=== PATIENT | female | born 1965 | race Caucasian/White ===

== ENCOUNTER → 2019-10-21 16:56 | Outpatient (BNVA) | payer OTHER, SELFPAY | PROVIDERS: Family Provider Nurse Practitioner; PCP Nurse Practitioner; Visit Provider Nurse Practitioner | DX: E03.8 Other specified hypothyroidism (principal) | CPT/HCPCS: 80053; 80061; 83001; 84443 ==

== ENCOUNTER 2019-11-28 15:39 | Outpatient (CLI) | payer OTHER, SELFPAY ==
--- NOTE | 2019-11-28 15:30 | MM_ITS ---
WS: [id number] BILATERAL DIGITAL SCREENING MAMMOGRAPHY WITH CAD CLINICAL INFORMATION: screen HISTORY: Screening mammogram. No current complaints. COMPARISON: TECHNIQUE: Bilateral CC and MLO views. FINDINGS: The breasts are composed of heterogeneous fibroglandular density tissue, which can limit the detectio n of small underlying mass lesions. No suspicious mass, asymmetry, calcifications, or architectural d istortion. No evidence of malignancy. Vascular calcifications. A few punctate calcifications. MM/[id number] IMPRESSION: BI-RADS: 2-Benign FOLLOW UP: 1 Year Follow-up Recommend return to annual screening mammography.
== END 2019-11-28 15:40 | disposition home or self-care (01) ==
LOC: RADSHAW 15:43
PROVIDERS: PCP Nurse Practitioner; Visit Provider Nurse Practitioner
DX: Z12.31 Encounter for screening mammogram for malignant neoplasm of breast (principal)
CPT/HCPCS: 77067

== ENCOUNTER → 2020-03-17 15:48 | Outpatient (BNVA) | payer OTHER, SELFPAY | PROVIDERS: PCP Nurse Practitioner; Visit Provider Nurse Practitioner | DX: Z20.828 Contact with and (suspected) exposure to other viral communicable diseases (principal); Z11.59 Encounter for screening for other viral diseases | CPT/HCPCS: 84443 ==

== ENCOUNTER → 2020-12-09 16:05 | Outpatient (BNVA) | payer OTHER, SELFPAY | PROVIDERS: PCP Nurse Practitioner; Visit Provider Nurse Practitioner | DX: E03.8 Other specified hypothyroidism (principal); Z13.6 Encounter for screening for cardiovascular disorders | CPT/HCPCS: 80053; 80061; 84439; 84443; 84481 ==

== ENCOUNTER 2021-01-26 15:13 | Outpatient (CLI) | payer OTHER, SELFPAY ==
--- NOTE | 2021-01-26 15:30 | MM_ITS ---
WS: [id number] BILATERAL SCREENING DIGITAL MAMMOGRAM WITH CAD HISTORY: Z12.39 - Encounter for other screening for malignant neoplasm... COMPARISON: 10/17/2018, 11/28/2019 and 06/08/2016 Bilateral CC and MLO views submitted. Computer aided detection analyzed. Breast composition: There are scattered areas of fibroglandular density. No suspicious masses, microc alcifications or architectural distortion. Stable mass measuring 7 mm with calcifications in the infe rior medial RIGHT breast. No new mass. MM/[id number] IMPRESSION: BI-RADS: 2-Benign FOLLOW UP: 1 Year Follow-up
== END 2021-01-26 15:14 | disposition home or self-care (01) ==
LOC: RADSHAW 15:18
PROVIDERS: PCP Nurse Practitioner; Visit Provider Nurse Practitioner
DX: Z12.31 Encounter for screening mammogram for malignant neoplasm of breast (principal)
CPT/HCPCS: 77067

== ENCOUNTER 2021-01-31 15:40 | Emergency (ER) | payer OTHER, SELFPAY ==
[2021-01-31 16:00] VITALS: BP 125/81; PULSE 89; RESP 22; TEMP 37.3; O2SAT 98; BMI 27.1
--- NOTE | 2021-01-31 17:08 | XRR_ITS ---
PROCEDURE INFORMATION: Exam: XR Chest Exam date and time: 01/31/2021 5:08 PM Age: 55 years old Clinical indication: Cough with hemorrhage; Additional info: Cough, blood in sputum TECHNIQUE: Imaging protocol: XR of the chest. Views: 2 views. COMPARISON: No relevant prior studies available. FINDINGS: Lungs: Unremarkable. No consolidation. Pleural spaces: Unremarkable. No pleural effusion. No pneumothorax. Heart/Mediastinum: Unremarkable. No cardiomegaly. Diaphragm: Mild elevation of the left hemidiaphragm. Bones/joints: Unremarkable. XR/XR chest 2V* [id number] IMPRESSION: No evidence for acute cardiopulmonary disease. Radiation Dose CTDIVOL = (mGy): DLP = (mGy-cm)
--- NOTE | 2021-01-31 17:47 | PC.NURSE ---
no call for rooming
--- NOTE | 2021-01-31 17:54 | ED_ITS ---
HPI - General Adult General: Chief complaint: General Medical Stated complaint: COUGHING UP BLOOD/HEADACHE Time Seen by Provider: 01/31/21 17:54 History of Present Illness: HPI narrative: 55-year-old female comes in today with some coughing up or emesis with blood in it. Patient states that she gets nauseous and has episodes of coughing and vomiting. Patient recently has had her vaccines for the flu and for COVID-19. Patient appears well. Patient denies any significant illness. Patient is a smoker had stopped for 2 months but has recently restarted. Patient is alert oriented. Patient denies any chest discomfort. Patient does report some left upper quadrant abdominal discomfort. Patient has a history of hypothyroidism. Onset (ago): day(s) Associated symptoms: Reports nausea; Deny dyspnea or malaise Review of Systems General: Reports: 10 or more systems reviewed and unremarkable except in HPI and below Const: Denies: fever(s), fatigue or malaise ENMT: Denies: throat pain Resp: Denies: dyspnea, pain on inspiration or change in phlegm color GI: Reports: abdominal pain (Epigastric) and nausea PFSH ED PFSH: Medical History Adult onset hypothyroidism Uses Depo-Provera as primary control method Surgical History No history of previous surgery Family History Other Cancer Denies family history of Bleeding disorder Social History Smoking and tobacco status: current every day smoker Second hand smoke exposure: Yes Smoking risk assessment/counseling performed?: Yes Alcohol intake: current Desire information about alcohol rehabilitation?: No Counseling given: No Desire information about substance/drug rehabilitation?: No Counseling given: No Adopted: No Caregiver/support person: No Lives independently: Yes Household members: spouse Housing: House Marital status: service: No Current occupational status: employed Pets and animals: Yes History of recent travel: No Current gender identity: Female Physical Exam Const: COMMON NORMALS: no acute distress and patient oriented x3 GENERAL APPEARANCE: cooperative HENMT: COMMON NORMALS: normocephalic, TM's normal bilaterally and Normal ex ternal nose present HEAD & SCALP: normal to inspection and normocephalic NOSE: Normal external nose present TYMPANIC MEMBRANE: TM's normal bilaterally MOUTH: Normal oral and palatal mucosa present THROAT: posterior oropharynx normal Eye: GENERAL EYE: appearance normal, both eyes and all related structures Neck/C-Spine: COMMON NORMALS: full ROM Lymph: LYMPHATIC: no lymphadenopathy noted Chest: COMMONS NORMALS: normal inspection of the chest Resp: COMMON NORMALS: normal respiratory effort and clear to auscultation bilaterally EFFORT & INSPECTION: Yes able to speak in complete sentences AUSCULTATION: clear to auscultation bilaterally Cardio: COMMON NORMALS: regular rate and regular rhythm RATE: regular rate RHYTHM: regular rhythm GI: COMMON NORMALS: Soft to palpation and non-tender AUSCULTATION: Yes normoactive bowel sounds PALPATION: Yes Soft to palpation : COMMON NORMALS: Yes no CVA tenderness BLADDER/KIDNEY EXAM: Yes no CVA tenderness Back/Pelvis: COMMON NORMALS: no CVA tenderness and thoracic and lumbar spine normal to inspection Extremity: COMMON NORMALS: normal to inspection Neuro: COMMON NORMALS: patient oriented x3 and moves all extremities Psych: COMMON NORMALS: mental status grossly normal and cooperative Skin: COMMON NORMALS: no rashes or lesions noted GENERAL SKIN EXAM: no rashes or lesions noted Course Vital Signs: Vital signs: Vital Signs Temperature 97.9 F 01/31/21 18:10 Pulse Rate 76 01/31/21 18:33 Respiratory Rate 18 01/31/21 18:33 Blood Pressure 124/83 01/31/21 18:33 Pulse Oximetry 98 01/31/21 18:33 MDM - General Adult MDM Narrative: Medical decision making narrative: 55-year-old female comes in today with complaints of some nausea, occasional cough, and emesis with blood. Patient also reports some increase in heartburn over the last couple of weeks. Exam is unremarkable, vital signs are normal. Respirations are even lungs are clear to auscultation. Abdomen is soft with some mild epigastric tenderness. Differential diagnosis includes but not limited to pneumonia, PE, esophageal varices, gastritis. Laboratory values were unremarkable. Liver enzymes were normal. PT PTT was normal. D-dimer was negative. With patient's complaints of symptoms of believe that she probably has gastritis. Will start on some pantoprazole and recommend recheck with primary care and further evaluation with upper endoscopy. Patient reported understanding and agreed to plan. Lab Data: Labs: Lab Results 01/31/21 01/31/21 01/31/21 18:30 18:30 18:30 WBC 7.0 10^3/uL 10^3/ uL (4.0-10.0) RBC 4.44 10^6/uL 10^6 /uL (4.1-5.3) Hgb 14.9 g/dL g/dL (11.5-15.3) Hct 45.1 % % (37.0-47.0) MCV 101.6 fl H fl (81-99) MCH 33.6 pg pg (28.0-34.0) MCHC 33.0 g/dL g/dL (30.0-36.0) RDW 13.1 % % (12.1-15.1) Plt Count 344 10^3/cmm 10^3 /cmm (130-400) MPV 9.7 fL fL (7.4-10.4) Neut % (Auto) 64.9 % % Lymph % (Auto) 23.3 % % [place] % (Auto) 9.6 % % Eos % (Auto) 1.0 % % Baso % (Auto) 0.9 % % Neut # (Auto) 4.56 10^3/uL 10^3 /uL (1.8-7.7) Lymph # (Auto) 1.6 10^3/uL 10^3/ uL (0.8-4.8) [place] # (Auto) 0.7 10^3/uL 10^3/ uL (0.2-0.9) Eos # (Auto) 0.1 10^3/uL 10^3/ uL (0.0-0.8) Baso # (Auto) 0.1 10^3/uL 10^3/ uL (0.0-0.1) Nucleated RBC % (a uto) 0 % % Nucleated RBCs # 0.0 /100WBC /100W BC PT 12.60 SECONDS SEC ONDS (12.1-14.9) INR 0.91 (0.8-1.2) APTT 27.8 SECONDS SECO NDS (23.9-36.7) D-Dimer 0.51 ug/mIFEU ug/ mIFEU (0-0.59) Sodium 141 mmol/L mmol/L (136-145) Potassium 3.8 mmol/L mmol/L (3.5-5.1) Chloride 107 mmol/L mmol/L (98-107) Carbon Dioxide 21 mmol/L L mmol/ L (22-29) Anion Gap 16.8 (5-19) BUN 6 mg/dL mg/dL (6-20) Creatinine 0.5 mg/dL mg/dL (0.5-0.9) GFR Calculation 129.1 mL/min mL/m in (90-130) Glucose 87 mg/dL mg/dL (65-115) Calculated Osmolal ity 289 mOsm/kg mOsm/ kg (285-295) Calcium 9.7 mg/dL mg/dL (8.5-10.5) Total Bilirubin 0.3 mg/dL mg/dL (0.15-1.2) AST 14 U/L U/L (0-32) ALT 16 U/L U/L (0-33) Alkaline Phosphata se 102 IU/L IU/L (35-105) Total Protein 7.4 g/dL g/dL (6.6-8.7) Albumin 4.5 g/dL g/dL (3.5-5.2) Globulin 2.9 g/dL g/dL (1.3-4.6) Discharge Plan Discharge Patient Disposition: Home Clinical Impression: Gastritis Qualifiers: Gastritis type: unspecified gastritis Chronicity: acute Gastritis bleeding: with bleeding Qualified Code(s): K29.01 - Acute gastritis with bleeding Condition: Stable Prescriptions: New pantoprazole 40 mg tablet,delayed release (DR/EC) 40 mg PO DAILY Qty: 30 RF: 0 No Action levothyroxine 75 mcg tablet 75 mcg PO DAILY Qty: 30 RF: 1 medroxyprogesterone 150 mg/mL syringe 150 mg IM .Every 12 weeks Qty: 1 RF: 3 Discharge Orders: Discharge ED (Routine); Ordered 01/31/21 Ordered By: Marco Schmid Referrals: Tye Chatterjee, [facility] [Primary Care Provider] - Discharge Diet: As Directed Discharge Activity: Increase activity as tolerated Patient Instructions: Gastritis (ED), Diet for Stomach Ulcers and Gastritis (ED), Opioid Safety Activity Restrictions/Additional Instructions: Home and rest. Take medication as directed. You will take pantoprazole 40 mg daily 30 minutes prior to the first meal of the day. Monitor for worsening symptoms such as high fever, blood in vomit and stool, and worsening pain. Return to the emergency room for worsening symptoms or new concerns. Follow-up with primary care in 1 week for recheck. Coding Level of Care Code ED Construction Safety Consultant for Maribel Fwd Exam Comprehensive
[2021-01-31 18:10] VITALS: BP 124/84; PULSE 73; RESP 16; TEMP 36.6; O2SAT 99
[2021-01-31 18:33] VITALS: BP 124/83; PULSE 76; RESP 18; O2SAT 98
[2021-01-31 18:37] LABS: Basophils # 0.1 10^3/uL (0.0-0.1); Basophils % 0.9 %; Eosinophils # 0.1 10^3/uL (0.0-0.8); Hematocrit 45.1 % (37.0-47.0); Hemoglobin 14.9 g/dL (11.5-15.3); Lymphocytes # 1.6 10^3/uL (0.8-4.8); Lymphocytes % 23.3 %; Mean Corpuscular Hemoglobin 33.6 pg (28.0-34.0); Mean Corpuscular Volume 101.6 fl (81-99); Mean Platelet Volume 9.7 fL (7.4-10.4); Monocytes # 0.7 10^3/uL (0.2-0.9); Monocytes % 9.6 %; Neutrophils # 4.56 10^3/uL (1.8-7.7); Neutrophils % 64.9 %; Nucleated Red Blood Cells % 0 %; Platelet Count 344 10^3/cmm (130-400); Red Blood Count 4.44 10^6/uL (4.1-5.3); Red Cell Distribution Width 13.1 % (12.1-15.1)
[2021-01-31 18:52] LABS: Alanine Aminotransferase 16 U/L (0-33); Albumin Level 4.5 g/dL (3.5-5.2); Alkaline Phosphatase 102 IU/L (35-105); Anion Gap 16.8 (5-19); Aspartate Amino Transferase 14 U/L (0-32); Blood Urea Nitrogen 6 mg/dL (6-20); Calcium 9.7 mg/dL (8.5-10.5); Carbon Dioxide 21 mmol/L (22-29); Chloride 107 mmol/L (98-107); Globulin 2.9 g/dL (1.3-4.6); Glomerular Filtration Rate 129.1 mL/min (90-130); Glucose 87 mg/dL (65-115); Osmolality Calculated 289 mOsm/kg (285-295); Potassium 3.8 mmol/L (3.5-5.1); Sodium 141 mmol/L (136-145); Total Bilirubin 0.3 mg/dL (0.15-1.2); Total Protein 7.4 g/dL (6.6-8.7)
[2021-01-31 19:15] LABS: INR 0.91 (0.8-1.2); Partial Thromboplastin Time 27.8 SECONDS (23.9-36.7)
[2021-01-31 19:18] LABS: D Dimer 0.51 ug/mIFEU (0-0.59)
[2021-01-31 19:34] VITALS: RESP 16
[2021-01-31] MEDS: pantoprazole DR 40 mg Tablet PO (19:34)
--- NOTE | 2021-02-01 14:02 | DCPLANNER ---
clinical resource manager had message to schedule a follow up appointment for patient with [facility] General Surgery. clinical resource manager emailed patients information to Cathie Quinonez and Esmer at [facility] General Surgery / ENT clinic. Patients information will be printed and reviewed. Clinic will call patient with appointment information.
--- NOTE | 2021-02-04 15:34 | DCPLANNER ---
Patient has a follow up appointment scheduled for Monday, February 08, 2021 at 8:[address] Daugherty at [facility] General Surgery / ENT clinic. Clinic will call patient with appointment information.
--- NOTE | 2021-02-11 08:25 | DCPLANNER ---
Patient had a follow up appointment scheduled for 02.08.[address] Shah at general surgery - patient did attend appointment.
== END 2021-01-31 19:35 | disposition home or self-care (01) ==
PROVIDERS: Emergency Provider Nurse Practitioner Family; PCP Nurse Practitioner
DX: K29.01 Acute gastritis with bleeding (principal); F17.210 Nicotine dependence, cigarettes, uncomplicated
CPT/HCPCS: 71046; 80053; 85025; 85378; 85610; 85730; 99283

== ENCOUNTER → 2021-02-08 08:57 | Outpatient (BNVA) | payer OTHER, SELFPAY | PROVIDERS: PCP Nurse Practitioner; Visit Provider Surgery | DX: Z12.11 Encounter for screening for malignant neoplasm of colon (principal); K92.0 Hematemesis; Z20.822 Contact with and (suspected) exposure to COVID-19 | CPT/HCPCS: 87635 ==

== ENCOUNTER 2021-02-12 06:42 | Day surgery (SDC) | payer OTHER, SELFPAY ==
[2021-02-10 10:57] VITALS: BMI 27.1
--- NOTE | 2021-02-12 06:45 | W.PM.OPSUD ---
Surgery/Procedure H&P Update DATE OF PROCEDURE: February 12, 2021 DATE H&P PERFORMED: 02/08/21 H&P UPDATE INFORMATION: I have reviewed H&P completed within last 30 days, I have examined patient prior to procedure and No changes to prior documentation PREOP DIAGNOSIS: Hematemesis PRIMARY INDICATION FOR PROCEDURE: The same PLANNED PROCEDURE: Operation Date: 02/12/21 08:00 Proposed Procedures p EGD 26746 K92.0(Not Applicable) - Kyler Daugherty MD
--- NOTE | 2021-02-12 06:51 | ANES.PREANE2 ---
Pre-Anesthetic Assessment Pre-Anesthetic Assessment: Height/Weight: Height 1.8 m Weight 88.451 kg Preop Diagnosis: Hematemesis Proposed Procedure: Operation Date: 02/12/21 08:00 Proposed Procedures p EGD 32385 K92.0(Not Applicable) - Kyler Daugherty MD Familial anesthetic complications: No history of anesthesia- no family trouble Was Beta Jamaal taken within 24 hours: N/A Was Clonidine taken within 24 hours: N/A Last intake: > 8hrs Social: Social History: Alcohol and Tobacco Comment: beers 4 daily Exam: Pre-Anes Outpt Exam: alert, oriented x 3, clear to auscultation bilaterally and regular rate & rhythm Airway: MP: 2 Dentition: Other (1 missing) GI: GI: GERD Metabolic: Metabolic: Thyroid Anesthetic Plan: ASA status: 2 Anesthesia: MAC Risk of > 500 ml blood loss (7ml/kg in children): No PFSH Anesthesia PFSH: Medical History Adult onset hypothyroidism Alcohol dependence, daily use Uses Depo-Provera as primary control method Surgical History No history of previous surgery Family History Other Cancer Denies family history of Bleeding disorder Social History Smoking and tobacco status: current every day smoker Second hand smoke exposure: Yes Smoking risk assessment/counseling performed?: Yes Alcohol intake: current Desire information about alcohol rehabilitation?: No Counseling given: No Desire information about substance/drug rehabilitation?: No Counseling given: No Adopted: No Caregiver/support person: No Lives independently: Yes Household members: spouse Housing: House Marital status: service: No Current occupational status: employed Pets and animals: Yes History of recent travel: No Current gender identity: Female Data Anesthesia Cardiac Studies: No Data to Display
[2021-02-12 07:23] VITALS: BP 144/81; PULSE 78; RESP 18; TEMP 36.6; O2SAT 99
[2021-02-12] MEDS: sodium chloride 0.9% 1,000 ML 30 ML IV (07:31)
[2021-02-12 09:04] VITALS: BP 132/89; PULSE 80; RESP 18; TEMP 36.5; O2SAT 97
--- NOTE | 2021-02-12 09:06 | ANE.PACU2 ---
Inpatient post-anesthesia follow up: Airway intact: Yes Vital signs: Temperature 97.9 F Pulse Rate 78 Respiratory Rate 18 Blood Pressure 144/81 Pulse Oximetry 99 Oxygen Delivery Me thod Room Air Oxygen Flow Rate Fraction of Inspir ed Oxygen Hydration adequate: Yes Nausea and vomiting: No Pain level: 1 Mental status: Baseline
[2021-02-12 09:33] VITALS: BP 138/95; PULSE 74; RESP 16; O2SAT 98
[2021-02-15 15:11] LABS: H. Pylori / CLO Test Negative
== END 2021-02-12 09:35 | disposition home or self-care (01) ==
PROVIDERS: PCP Nurse Practitioner; Visit Provider Surgery
PROC: 0DJ08ZZ Inspection of Upper Intestinal Tract, Via Natural or Artificial Opening Endoscopic (ICD-10-PCS; CPT 43235; principal; 2021-02-12 08:00)
DX: K92.0 Hematemesis (principal); K21.00 Gastro-esophageal reflux disease with esophagitis, without bleeding; K29.70 Gastritis, unspecified, without bleeding; E03.8 Other specified hypothyroidism; Z77.22 Contact with and (suspected) exposure to environmental tobacco smoke (acute) (chronic)
CPT/HCPCS: 43239; 87077; 96361; 96374; J2704; J7030

== ENCOUNTER → 2021-06-11 10:14 | Outpatient (BNVA) | payer OTHER, SELFPAY | PROVIDERS: PCP Nurse Practitioner; Visit Provider Surgery | DX: Z20.822 Contact with and (suspected) exposure to COVID-19 (principal) | CPT/HCPCS: 87635 ==

== ENCOUNTER 2021-06-18 06:53 | Day surgery (SDC) | payer OTHER, SELFPAY ==
[2021-06-16 10:01] VITALS: BMI 26.4
--- NOTE | 2021-06-18 07:01 | ANES.PREANE2 ---
Pre-Anesthetic Assessment Height/Weight: Height 1.8 m Weight 86.183 kg Preop Diagnosis: Hematemesis Operation Date: 06/18/21 08:30 Proposed Procedures p [id number]/k20.90(Not Applicable) - Kyler Daugherty MD Familial anesthetic complications: None Was Beta Jamaal taken within 24 hours: N/A Was Clonidine taken within 24 hours: N/A Last intake: > 8 hrs Social Alcohol (3 beers nightly) and Tobacco Exam alert, oriented x 3, clear to auscultation bilaterally and regular rate & rhythm Airway Mallampati: Class II Dentition: other (1 missing) Pulmonary None reported CV/HEM None reported None reported Hepatic None reported GI Gastroesophageal Reflux Disease Metabolic Thyroid Disease [facility] [place] None reported Neuropsych None reported Anesthetic Plan ASA status: 2 Anesthesia: MAC Risk of > 500 ml blood loss (7ml/kg in children): No Medications/Allergies Home Medications Medication Instructions Recorded Confirmed Last Taken Type medroxyprogesterone 150 mg/mL 150 mg IM .Every 12 weeks #1 ml 12/08/20 06/16/21 Unknown Rx intramuscular syringe levothyroxine 75 mcg tablet 75 mcg PO DAILY #90 tab 02/07/21 06/16/21 02/12/21 Rx sucralfate 1 gram tablet (Carafate) 1 g PO TID 56 Days #168 tab 02/12/21 06/16/21 Unknown Rx pantoprazole 40 mg tablet,delayed 40 mg PO DAILY #90 tab 02/22/21 06/16/21 Unknown Rx release venlafaxine 75 mg capsule,extended 75 mg PO BEDTIME 06/16/21 06/16/21 Unknown History release 24 hr (Effexor XR) Allergies Allergy/AdvReac Type Severity Reaction Status Date / Time No Known Allergies Allergy Verified 06/16/21 10:02 [facility] Anesthesia Medical History Adult onset hypothyroidism Alcohol dependence, daily use Hematemesis Uses Depo-Provera as primary control method Surgical History No history of previous surgery Family History Other Cancer Denies family history of Bleeding disorder Social History Smoking and tobacco status: current every day smoker Second hand smoke exposure: Yes Smoking risk assessment/counseling performed?: Yes Alcohol intake: current Desire information about alcohol rehabilitation?: No Counseling given: No Desire information about substance/drug rehabilitation?: No Counseling given: No Adopted: No Caregiver/support person: No Lives independently: Yes Household members: spouse Housing: House Marital status: service: No Current occupational status: employed Pets and animals: Yes History of recent travel: No Current gender identity: Female Data Anesthesia Cardiac Studies: No Data to Display
[2021-06-18 07:19] VITALS: BP 131/93; PULSE 84; RESP 18; TEMP 36.1; O2SAT 96
[2021-06-18] MEDS: sodium chloride 0.9% 1,000 ML 30 ML IV (07:37)
--- NOTE | 2021-06-18 07:48 | W.PM.OPSFHP ---
Same Day Surgery H&P Indication for Procedure/HPI DATE OF PROCEDURE: June 18, 2021 CHIEF COMPLAINT/INDICATIONFOR SURGICAL PROCEDURE: History of esophagitis PREOP DIAGNOSIS: Distal esophagitis PLANNED PROCEDURE: Operation Date: 06/18/21 08:30 Proposed Procedures p [id number]/k20.90(Not Applicable) - Kyler Daugherty MD 02/22/2021 Patient comes today status post EGD and was found to have distal esophagitis, gastritis and otherwise normal findings.? Currently she is on PPI therapy and Carafate and overall she seems to be doing well and working on stopping smoking.? Patient overall will require a repeat EGD in 2 to 3-month due to the distal esophagitis as if it is not getting better biopsies will be obtained Interim history 04/28/2021 Ms. Zimmer comes today and overall feels well yet she continues to smoke and drink. Patient did have distal esophagitis and I am concerning about her pattern of lifestyle that she may have an underlying component of Suarez's esophagitis. Interim history 06/18/2021 Patient comes today for repeat diagnostic EGD ROS All systems have been reviewed negative except as per the above or per problem list Medications/Allergies* Home Medications Medication Instructions Recorded Confirmed Type venlafaxine 75 mg capsule,extended 75 mg PO BEDTIME 06/16/21 06/16/21 History release 24 hr (Effexor XR) Allergies/Adverse Reactions Allergy/AdvReac Type Severity Reaction Status Date / Time No Known Allergies Allergy Verified 06/18/21 08:05 Current Medications: Generic Name Dose Route Start Last Admin Trade Name Freq PRN Reason Stop Dose Admin Sodium Chloride 1,000 mls @ 30 mls/hr 06/18/21 07:30 06/18/21 07:37 Sodium Chloride 0.9% IV 06/19/21 07:29 30 mls/hr .Q24H KHRIS Administration Pertinent History/Comorbid Conditions* Medical History Adult onset hypothyroidism Alcohol dependence, daily use Hematemesis Uses Depo-Provera as primary control method Surgical History (Updated 10/21/19 @ 16:56 by CAROLYN Murguia) No history of previous surgery Family History (Updated 10/21/19 @ 09:43 by LUTHER Willoughby) Cancer Denies family history of Bleeding disorder Social History Smoking and tobacco status: current every day smoker Second hand smoke exposure: Yes Smoking risk assessment/counseling performed?: Yes Alcohol intake: current Desire information about alcohol rehabilitation?: No Counseling given: No Desire information about substance/drug rehabilitation?: No Counseling given: No Adopted: No Caregiver/support person: No Lives independently: Yes Household members: spouse Housing: House Marital status: service: No Current occupational status: employed Pets and animals: Yes History of recent travel: No Current gender identity: Female Pertinent Exam Findings alert, oriented x 3, regular rate & rhythm and procedure specific exam findings (Abdominal examination nontender nondistended soft) Recommendations Surgery/Procedure today (EGD with possible biopsy) Coding Level of Care Code Acute Hand Stone Polisher for Maribel Jordan
[2021-06-18 08:40] VITALS: BP 131/82; PULSE 74; RESP 16; TEMP 36.3; O2SAT 97
[2021-06-18 08:50] VITALS: BP 140/88; PULSE 79; RESP 18; O2SAT 99
--- NOTE | 2021-06-18 08:50 | ANE.PACU2 ---
Inpatient post-anesthesia follow up: Airway intact: Yes Vital signs: Temperature 97.4 F Pulse Rate 74 Respiratory Rate 16 Blood Pressure 131/82 Pulse Oximetry 97 Oxygen Delivery Me thod Room Air Oxygen Flow Rate Fraction of Inspir ed Oxygen Hydration adequate: Yes Nausea and vomiting: No Pain level: 1 Mental status: Baseline
[2021-06-18 09:05] VITALS: BP 144/88; PULSE 79; RESP 20; TEMP 36.4; O2SAT 95
== END 2021-06-18 09:11 | disposition home or self-care (01) ==
PROVIDERS: PCP Nurse Practitioner; Visit Provider Surgery
PROC: 0DJ08ZZ Inspection of Upper Intestinal Tract, Via Natural or Artificial Opening Endoscopic (ICD-10-PCS; CPT 43235; principal; 2021-06-18 08:30)
DX: K20.90 Esophagitis, unspecified without bleeding (principal); F17.210 Nicotine dependence, cigarettes, uncomplicated; E03.9 Hypothyroidism, unspecified; K21.00 Gastro-esophageal reflux disease with esophagitis, without bleeding; K22.70 Barrett's esophagus without dysplasia
CPT/HCPCS: 43239; 88305; J2704; J7030

== ENCOUNTER → 2021-07-23 11:26 | Outpatient (BNVA) | payer OTHER, SELFPAY | PROVIDERS: PCP Nurse Practitioner; Visit Provider Family Medicine Adult Medicine | DX: E03.8 Other specified hypothyroidism (principal); Z13.6 Encounter for screening for cardiovascular disorders; E55.9 Vitamin D deficiency, unspecified | CPT/HCPCS: 80053; 80061; 82306; 83001; 84443; 85025 ==

== ENCOUNTER → 2021-11-30 16:51 | Outpatient (BNVA) | payer OTHER, SELFPAY | PROVIDERS: PCP Nurse Practitioner; Visit Provider Nurse Practitioner | DX: E03.8 Other specified hypothyroidism (principal); E55.9 Vitamin D deficiency, unspecified; E78.2 Mixed hyperlipidemia | CPT/HCPCS: 80053; 80061; 82306; 84443 ==

== ENCOUNTER → 2022-01-26 10:14 | Outpatient (BNVA) | payer OTHER, SELFPAY | PROVIDERS: Visit Provider Family Medicine | DX: I49.9 Cardiac arrhythmia, unspecified (principal); E03.8 Other specified hypothyroidism; E78.2 Mixed hyperlipidemia; F10.20 Alcohol dependence, uncomplicated; F17.219 Nicotine dependence, cigarettes, with unspecified nicotine-induced disorders; F41.9 Anxiety disorder, unspecified | CPT/HCPCS: 80053; 83036; 84439; 84443; 85025 ==

== ENCOUNTER 2022-02-07 14:48 | Outpatient (CLI) | payer OTHER, SELFPAY ==
--- NOTE | 2022-02-07 14:55 | MM_ITS ---
WS: [id number] BILATERAL 3D TOMOSYNTHESIS DIGITAL SCREENING MAMMOGRAPHY WITH CAD CLINICAL INFORMATION: SCREENING HISTORY: Screening mammogram. No current complaints. COMPARISON: January 26, 2021 TECHNIQUE: Bilateral CC and MLO views. FINDINGS: The breasts are composed of heterogeneous fibroglandular density tissue, which can limit the detectio n of small underlying mass lesions. No suspicious mass, asymmetry, calcifications, or architectural d istortion. No evidence of malignancy. 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 MM/[id number] IMPRESSION: BI-RADS: 2-Benign FOLLOW UP: 1 Year Follow-up Recommend return to annual screening mammography.
== END 2022-02-07 14:49 | disposition home or self-care (01) ==
PROVIDERS: PCP Family Medicine; Visit Provider Nurse Practitioner
DX: Z12.31 Encounter for screening mammogram for malignant neoplasm of breast (principal)
CPT/HCPCS: 77063; 77067

== ENCOUNTER → 2023-01-11 08:48 | Outpatient (BNVA) | payer OTHER, SELFPAY | PROVIDERS: PCP Family Medicine; Visit Provider Family Medicine | DX: D75.89 Other specified diseases of blood and blood-forming organs (principal); E03.8 Other specified hypothyroidism; E78.2 Mixed hyperlipidemia; F41.9 Anxiety disorder, unspecified; K20.90 Esophagitis, unspecified without bleeding; K22.70 Barrett's esophagus without dysplasia | CPT/HCPCS: 80053; 80061; 84439; 84443; 85025 ==

== ENCOUNTER → 2023-11-28 10:52 | Outpatient (BNVA) | payer OTHER, SELFPAY | PROVIDERS: PCP Family Medicine; Visit Provider Family Medicine | DX: E78.2 Mixed hyperlipidemia (principal); E03.8 Other specified hypothyroidism; D75.89 Other specified diseases of blood and blood-forming organs | CPT/HCPCS: 80053; 80061; 82607; 82746; 84439; 84443 ==

== ENCOUNTER → 2024-05-09 13:00 | Outpatient (BNVA) | payer OTHER, SELFPAY | PROVIDERS: PCP Family Medicine; Visit Provider Family Medicine | DX: F10.20 Alcohol dependence, uncomplicated (principal); F41.9 Anxiety disorder, unspecified; E78.2 Mixed hyperlipidemia; E55.9 Vitamin D deficiency, unspecified; E03.8 Other specified hypothyroidism; E83.42 Hypomagnesemia; E83.39 Other disorders of phosphorus metabolism; E87.6 Hypokalemia; F17.210 Nicotine dependence, cigarettes, uncomplicated; Z23 Encounter for immunization | CPT/HCPCS: 80053; 80061; 82306; 82607; 82746; 83735; 84100; 84439; 84443; 85025 ==

== ENCOUNTER 2024-05-31 10:44 | Outpatient (CLI) | payer OTHER, SELFPAY ==
--- NOTE | 2024-05-31 11:00 | MM_ITS ---
WS: [id number] BILATERAL SCREENING DIGITAL TOMOSYNTHESIS MAMMOGRAM WITH CAD HISTORY: Z12.31 - Encounter for screening mammogram for malignant ... COMPARISON: 02/07/2022, 01/26/2021 Bilateral CC and MLO views with tomosynthesis and synthetic mammography submitted. Computer aided detection analyzed. Breast composition: The breasts are heterogeneously dense, which may obscure small masses. No suspicious masses, microcalcifications or architectural distortion. Focal asymmetry superior LEFT breast is stable. MM/MM scr BI tomosynthesis [id number] IMPRESSION: BI-RADS: 2 - Benign FOLLOW UP: 1 Year Follow-up
== END 2024-05-31 10:45 | disposition home or self-care (01) ==
LOC: RAD 10:45
PROVIDERS: PCP Family Medicine; Visit Provider Family Medicine
DX: Z12.31 Encounter for screening mammogram for malignant neoplasm of breast (principal); R92.333 Mammographic heterogeneous density, bilateral breasts; N64.89 Other specified disorders of breast
CPT/HCPCS: 77063; 77067